=== PATIENT | female | born 1980 | race African-American/Black ===

== ENCOUNTER 2017-10-12 07:59 | Emergency (ER) | payer SELFPAY ==
[2017-10-12] MEDS ORDERED: Ketorolac Tromethamine 60 MG/2 ML VIAL ONE (08:41)
== END 2017-10-12 09:32 | disposition home or self-care (01) ==
LOC: ERS 07:59
DX: S16.1XXA Strain of muscle, fascia and tendon at neck level, initial encounter (principal); S29.012A Strain of muscle and tendon of back wall of thorax, initial encounter; I50.9 Heart failure, unspecified; F32.9 Major depressive disorder, single episode, unspecified; Z79.899 Other long term (current) drug therapy; V49.9XXA Car occupant (driver) (passenger) injured in unspecified traffic accident, initial encounter
CPT/HCPCS: 96372; J1885

== ENCOUNTER 2018-09-01 18:48 | Emergency (ER) | payer OTHER, SELFPAY ==
[2018-09-01] MEDS ORDERED: Ibuprofen 200 MG TAB ONE (20:28)
[2018-09-01] MEDS ORDERED: Dexamethasone 4 mg/ml Vial ONE (20:29)
== END 2018-09-01 20:40 | disposition home or self-care (01) ==
LOC: ERS 18:48
DX: J02.0 Streptococcal pharyngitis (principal); F32.9 Major depressive disorder, single episode, unspecified; I50.9 Heart failure, unspecified
CPT/HCPCS: 99283; J1100